=== PATIENT | female | born 1985 | race Two or more races ===

== ENCOUNTER 2016-08-19 19:59 | Emergency (ER) | payer OTHER ==
[~2016-08-19] VITALS: Ht 165.1 cm; Wt 60.0 kg
[2016-08-19 20:04] VITALS: BP 108/73
[2016-08-19] MEDS ORDERED: ONDANSETRON 2MG/ML, 2ML ONE (20:19)
[2016-08-19] MEDS ORDERED: SODIUM CHLORIDE 0.9% 1,000ML IVBOLUS ONE (20:30)
[2016-08-19] MEDS ORDERED: ONDANSETRON 2MG/ML, 2ML IVPush ONE (20:30)
[2016-08-19] MEDS ORDERED: PLEASE ENTER HEIGHT AND WEIGHT MC SCH (20:30)
[2016-08-19] MEDS ORDERED: SODIUM CHLORIDE FLUSH 10ML SYR IVF ONE (20:30)
[2016-08-19 21:02] LABS: BLOOD UREA NITROGEN 11 mg/dL (7-18)
[2016-08-19] MEDS ORDERED: POTASSIUM CHLORIDE 20 MEQ TAB.ER.PRT ONE (21:24)
[2016-08-19] MEDS ORDERED: POTASSIUM CHLORIDE 20 MEQ TAB.ER.PRT PO ONE (21:30)
== END 2016-08-19 21:58 | disposition home or self-care (01) ==
LOC: ED 21:40
DX: R55 Syncope and collapse (principal); R11.2 Nausea with vomiting, unspecified
CPT/HCPCS: 36415; 71010; 80048; 82040; 85025; 93005; 96361; 96374; 99285; J2405; J7030